=== PATIENT | male | born 1950 | race African-American/Black ===

== ENCOUNTER 2019-07-04 10:15 | Inpatient (IN) | payer MEDICAID ==
[~2019-07-04] VITALS: Ht 172.7 cm; Wt 55.8 kg
[2019-07-04] MEDS ORDERED: METHYLPREDNISOLONE SOD SUCC 125 MG/2 ML VIAL IV STA (10:35)
[2019-07-04] MEDS ORDERED: IPRATROPIUM BROMIDE (0.02%) 0.5MG/2.5ML NEB HHN STA (10:35)
[2019-07-04] MEDS ORDERED: ALBUTEROL (0.083%) 2.5MG/3ML NEB HHN STA (10:35)
[2019-07-04] MEDS ORDERED: MAGNESIUM 2 G PREMIX 50 ML IV ONE (10:45)
[2019-07-04] MEDS ORDERED: VANCOMYCIN 1 G PREMIX 200 ML IV ONE (10:45)
[2019-07-04] MEDS ORDERED: PIPERACILLIN/TAZ 3.375G PREMIX 50 ML IV ONE (10:45)
[2019-07-04] MEDS ORDERED: SODIUM CHLORIDE 0.9% 1000ML BAG (SEPSIS BOLUS) IV ONE (10:45)
[2019-07-04 11:01] LABS: BG BASE EXCESS 20.6 mmol/L (-2.0-2.0); BG CARBOXYHEMOGLOBIN 3.6 % (0.5-1.5); BG DEOXYHEMOGLOBIN 0.4 % (0.0-5.0); BG FRACTION INSPIRED OXYGEN 100; BG HCO3 ACT 56.4 mmol/L (22.0-26.0); BG METHEMOGLOBIN 0.2 % (0.0-1.5); BG OXYGEN SATURATION 99.6 % (92.0-98.5); BG OXYHEMOGLOBIN 95.8 % (94.0-97.0); BG PCO2 154.1 mmHg (35.0-45.0); BG PH 7.181 (7.350-7.450); BG PO2 221.4 mmHg (75.0-100.0); BG SAMPLE SITE RIGHT RADIAL; BG TOTAL HEMOGLOBIN 13.9 g/dL (12.0-18.0); BG VENT MODE MASK - NRB
[2019-07-04 11:32] LABS: BASOPHILS % 0.3 % (0.0-2.0); EOSINOPHILS % 3.2 % (0.0-5.0); HEMATOCRIT. 44.3 % (42.0-52.0); HEMOGLOBIN. 13.2 g/dL (14.0-18.0); INR 1.1; LYMPHOCYTES % 10.3 % (20.0-50.0); MEAN CORPUSCULAR HEMOGLOBIN 32.4 pg (28.0-32.0); MEAN CORPUSCULAR VOLUME 108.4 fL (80.0-94.0); MEAN PLATELET VOLUME 11.2 fl (7.4-10.4); MONOCYTES % 9.8 % (2.0-8.0); NEUTROPHILS % 76.4 % (40.0-76.0); PLATELET 58 x1000/uL (130-400); PROTHROMBIN TIME 11.7 sec (9.6-11.0); RED BLOOD CELL COUNT 4.08 mill/uL (4.7-6.1); RED CELL DISTRIBUTION WIDTH 19.8 % (11.6-14.6)
[2019-07-04 11:32] LABS: CHLORIDE 99 mEq/L (98-107)
[2019-07-04 11:55] LABS: PLATELET ESTIMATE DECREASED
[2019-07-04] MEDS ORDERED: MORPHINE SULFATE 2 MG/ML CPJ (NOT FOR IM USE) IV ONE (14:30)
[2019-07-04] MEDS ORDERED: SODIUM CHLORIDE 0.9% 1,000 ML IV ONE (14:30)
[2019-07-04] MEDS ORDERED: IPRATROPIUM/ALBUTEROL 0.5-3(2.5)MG/3ML NEB HHN PRN (14:45)
[2019-07-04] MEDS ORDERED: DIPHENHYDRAMINE 50MG/ML VIAL IV PRN (15:00)
[2019-07-04] MEDS ORDERED: MAGNESIUM/ALUMINUM HYDROXIDE/SIMETHICONE 30ML UDC PO PRN (15:00)
[2019-07-04] MEDS ORDERED: ENOXAPARIN 40MG/0.4ML SYR SUBCUT SCH (15:00)
[2019-07-04] MEDS ORDERED: CLONIDINE 0.1MG TABLET PO PRN (15:00)
[2019-07-04] MEDS ORDERED: LORAZEPAM 2MG/ML CPJ IV PRN (15:00)
[2019-07-04] MEDS ORDERED: DOCUSATE SODIUM 100MG CAPSULE PO PRN (15:00)
[2019-07-04] MEDS ORDERED: GUAIFENESIN 200MG/10ML SUGAR FREE UDC PO PRN (15:00)
[2019-07-04] MEDS ORDERED: NA PHOS,M-B/NA PHOS,DI-BA ENEMA 118ML PR PRN (15:00)
[2019-07-04] MEDS ORDERED: IPRATROPIUM/ALBUTEROL 0.5-3(2.5)MG/3ML NEB NEB PRN (15:00)
[2019-07-04] MEDS ORDERED: METHYLPREDNISOLONE SOD SUCC 125 MG/2 ML VIAL IV SCH (15:00)
[2019-07-04] MEDS ORDERED: ONDANSETRON HCL 4MG/2ML INJ IV PRN (15:00)
[2019-07-04] MEDS ORDERED: ACETAMINOPHEN 325MG TABLET PO PRN (15:00)
[2019-07-04] MEDS ORDERED: LEVOFLOXACIN 500MG PREMIX 100 ML IV SCH (15:00)
[2019-07-04 16:08] LABS: BG BASE EXCESS 6.5 mmol/L (-2.0-2.0); BG BILEVEL POS AIRWAY PRESSURE 16/5; BG CARBOXYHEMOGLOBIN 3.4 % (0.5-1.5); BG FRACTION INSPIRED OXYGEN 35; BG HCO3 ACT 35.3 mmol/L (22.0-26.0); BG METHEMOGLOBIN 0.3 % (0.0-1.5); BG OXYGEN SATURATION 89.6 % (92.0-98.5); BG OXYHEMOGLOBIN 86.3 % (94.0-97.0); BG PCO2 73.8 mmHg (35.0-45.0); BG PH 7.298 (7.350-7.450); BG PO2 59.8 mmHg (75.0-100.0); BG SAMPLE SITE RIGHT BRACHIAL; BG TOTAL HEMOGLOBIN 12.7 g/dL (12.0-18.0); BG VENT MODE MASK - BIPAP
[2019-07-04 16:27] LABS: CHLORIDE 103 mEq/L (98-107)
[2019-07-04] MEDS ORDERED: HYDROCODONE/ACETAMINOPHEN 5/325MG TABLET PO PRN (19:10)
[2019-07-04] MEDS ORDERED: MORPHINE SULFATE 2 MG/ML CPJ (NOT FOR IM USE) IV PRN (19:10)
[2019-07-04 21:00] VITALS: BP 121/67
[2019-07-04 22:00] VITALS: BP 121/67
[2019-07-04] MEDS ORDERED: VANCOMYCIN 1 G PREMIX 200 ML IV NR (23:00)
[2019-07-04] MEDS: METHYLPREDNISOLONE SOD SUCC 125 MG/2 ML VIAL IV SCH (23:47)
[2019-07-05] VITALS (12 sets, daily range): BP systolic 103–146; BP diastolic 48–74
[2019-07-05] MEDS: PIPERACILLIN/TAZOBACTAM 3.375 G in DEXT 5% WATER 100 ML IV SCH ×4 (00:06→21:38)
[2019-07-05] MEDS: IPRATROPIUM/ALBUTEROL 0.5-3(2.5)MG/3ML NEB HHN SCH ×6 (01:05→21:11)
[2019-07-05] MEDS: METHYLPREDNISOLONE SOD SUCC 125 MG/2 ML VIAL IV SCH ×4 (04:13→21:38)
[2019-07-05] MEDS: VANCOMYCIN 750 MG PREMIX 150 ML IV SCH ×3 (06:48→21:39)
[2019-07-05 07:43] LABS: CHLORIDE 103 mEq/L (98-107)
[2019-07-05 07:50] LABS: HEMATOCRIT. 36.5 % (42.0-52.0); HEMOGLOBIN. 11.4 g/dL (14.0-18.0); MEAN CORPUSCULAR HEMOGLOBIN 31.9 pg (28.0-32.0); MEAN CORPUSCULAR VOLUME 102.1 fL (80.0-94.0); MEAN PLATELET VOLUME 11.6 fl (7.4-10.4); PLATELET 101 x1000/uL (130-400); RED BLOOD CELL COUNT 3.57 mill/uL (4.7-6.1); RED CELL DISTRIBUTION WIDTH 18.7 % (11.6-14.6)
[2019-07-05 07:58] LABS: T4 FREE 1.34 ng/dL (0.76-1.46)
[2019-07-05 08:00] LABS: LDL CHOLESTEROL 53 mg/dL (5-100)
[2019-07-05 08:01] LABS: HDL CHOLESTEROL 57 mg/dL (40-59)
[2019-07-05] MEDS: ASPIRIN 81MG EC TABLET PO SCH (09:58)
[2019-07-05 11:38] LABS: BG BASE EXCESS 13.7 mmol/L (-2.0-2.0); BG CARBOXYHEMOGLOBIN 2.4 % (0.5-1.5); BG DEOXYHEMOGLOBIN 3.2 % (0.0-5.0); BG FRACTION INSPIRED OXYGEN 32; BG HCO3 ACT 43.4 mmol/L (22.0-26.0); BG METHEMOGLOBIN 0.3 % (0.0-1.5); BG OXYGEN SATURATION 96.7 % (92.0-98.5); BG OXYHEMOGLOBIN 94.1 % (94.0-97.0); BG PH 7.316 (7.350-7.450); BG PO2 93.9 mmHg (75.0-100.0); BG SAMPLE SITE RIGHT BRACHIAL; BG TOTAL HEMOGLOBIN 12.1 g/dL (12.0-18.0); BG VENT MODE NASAL CANNULA
[2019-07-05 17:42] LABS: PLATELET ESTIMATE DECREASED
[2019-07-06] VITALS (12 sets, daily range): BP systolic 113–151; BP diastolic 57–107
[2019-07-06] MEDS: IPRATROPIUM/ALBUTEROL 0.5-3(2.5)MG/3ML NEB HHN SCH ×6 (00:28→21:18)
[2019-07-06] MEDS: PIPERACILLIN/TAZOBACTAM 3.375 G in DEXT 5% WATER 100 ML IV SCH ×6 (00:45→23:27)
[2019-07-06] MEDS: METHYLPREDNISOLONE SOD SUCC 125 MG/2 ML VIAL IV SCH ×2 (03:32→08:50)
[2019-07-06] MEDS: VANCOMYCIN 750 MG PREMIX 150 ML IV SCH (06:20)
[2019-07-06 07:53] LABS: HEMATOCRIT. 35.9 % (42.0-52.0); HEMOGLOBIN. 11.5 g/dL (14.0-18.0); MEAN CORPUSCULAR HEMOGLOBIN 32.2 pg (28.0-32.0); MEAN PLATELET VOLUME 11.5 fl (7.4-10.4); PLATELET 114 x1000/uL (130-400); RED BLOOD CELL COUNT 3.59 mill/uL (4.7-6.1); RED CELL DISTRIBUTION WIDTH 18.5 % (11.6-14.6)
[2019-07-06 08:38] LABS: BG BASE EXCESS 12.7 mmol/L (-2.0-2.0); BG BILEVEL POS AIRWAY PRESSURE 18/5; BG CARBOXYHEMOGLOBIN 1.4 % (0.5-1.5); BG DEOXYHEMOGLOBIN 2.8 % (0.0-5.0); BG FRACTION INSPIRED OXYGEN 40; BG HCO3 ACT 37.5 mmol/L (22.0-26.0); BG METHEMOGLOBIN 0.1 % (0.0-1.5); BG OXYGEN SATURATION 97.2 % (92.0-98.5); BG OXYHEMOGLOBIN 95.7 % (94.0-97.0); BG PCO2 48.7 mmHg (35.0-45.0); BG PH 7.504 (7.350-7.450); BG PO2 89.9 mmHg (75.0-100.0); BG SAMPLE SITE RIGHT BRACHIAL; BG TOTAL HEMOGLOBIN 12.4 g/dL (12.0-18.0); BG VENT MODE MASK - BIPAP; BG VENT RATE 20 set
[2019-07-06] MEDS: ASPIRIN 81MG EC TABLET PO SCH (08:50)
[2019-07-06 08:51] LABS: CHLORIDE 102 mEq/L (98-107)
[2019-07-06 09:10] LABS: VANCOMYCIN TROUGH 21.2 ug/mL (5.0-10.0)
[2019-07-06 14:21] LABS: PLATELET ESTIMATE SLIGHTLY DECREASED
[2019-07-06] MEDS: METHYLPREDNISOLONE SOD SUCC 40 MG/ML VIAL IV SCH ×2 (15:21→23:21)
[2019-07-06 16:29] LABS: CLARITY URINE TURBID (CLEAR); COLOR URINE YELLOW (YELLOW); KETONES URINE NEGATIVE (NEGATIVE); LEUKOCYTE ESTERASE URINE NEGATIVE (NEGATIVE); NITRITE URINE NEGATIVE (NEGATIVE); OCCULT BLOOD URINE NEGATIVE (NEGATIVE); PH URINE 7.5 (4.5-8.0); PROTEIN URINE NEGATIVE (NEGATIVE); SPECIFIC GRAVITY URINE 1.018 (1.005-1.030)
[2019-07-06] MEDS: VANCOMYCIN 1 G PREMIX 200 ML IV SCH (20:42)
[2019-07-07] VITALS (15 sets, daily range): BP systolic 107–142; BP diastolic 49–90
[2019-07-07] MEDS: IPRATROPIUM/ALBUTEROL 0.5-3(2.5)MG/3ML NEB HHN SCH ×6 (01:19→21:05)
[2019-07-07] MEDS: METHYLPREDNISOLONE SOD SUCC 40 MG/ML VIAL IV SCH ×3 (05:53→20:01)
[2019-07-07] MEDS: PIPERACILLIN/TAZOBACTAM 3.375 G in DEXT 5% WATER 100 ML IV SCH ×3 (05:53→18:37)
[2019-07-07] MEDS: ASPIRIN 81MG EC TABLET PO SCH (07:47)
[2019-07-07] MEDS: VANCOMYCIN 1 G PREMIX 200 ML IV SCH ×2 (07:48→19:59)
[2019-07-07 11:41] LABS: HEMATOCRIT. 37.9 % (42.0-52.0); HEMOGLOBIN. 12.2 g/dL (14.0-18.0); MEAN CORPUSCULAR HEMOGLOBIN 32.1 pg (28.0-32.0); MEAN CORPUSCULAR VOLUME 99.9 fL (80.0-94.0); MEAN PLATELET VOLUME 10.4 fl (7.4-10.4); PLATELET 104 x1000/uL (130-400); RED CELL DISTRIBUTION WIDTH 18.1 % (11.6-14.6)
[2019-07-07 11:56] LABS: CHLORIDE 98 mEq/L (98-107)
[2019-07-07 12:40] LABS: PLATELET ESTIMATE DECREASED
[2019-07-07] MEDS ORDERED: POTASSIUM CHLORIDE 20MEQ TABLET SR PO NR (16:15)
[2019-07-07] MEDS: METOPROLOL TARTRATE 25MG TABLET PO SCH (20:00)
[2019-07-08] VITALS: BP 142/85
[2019-07-08] MEDS: IPRATROPIUM/ALBUTEROL 0.5-3(2.5)MG/3ML NEB HHN SCH ×6 (01:19→20:09)
[2019-07-08 04:00] VITALS: BP 120/72
[2019-07-08] MEDS: PIPERACILLIN/TAZOBACTAM 3.375 G in DEXT 5% WATER 100 ML IV SCH ×6 (05:47→23:01)
[2019-07-08] MEDS: METHYLPREDNISOLONE SOD SUCC 40 MG/ML VIAL IV SCH (05:47)
[2019-07-08 07:49] LABS: HEMATOCRIT. 42.6 % (42.0-52.0); HEMOGLOBIN. 13.6 g/dL (14.0-18.0); MEAN CORPUSCULAR HEMOGLOBIN 32.1 pg (28.0-32.0); MEAN CORPUSCULAR VOLUME 100.5 fL (80.0-94.0); MEAN PLATELET VOLUME 10.6 fl (7.4-10.4); PLATELET 97 x1000/uL (130-400); RED BLOOD CELL COUNT 4.24 mill/uL (4.7-6.1); RED CELL DISTRIBUTION WIDTH 18.3 % (11.6-14.6)
[2019-07-08 08:00] VITALS: BP 145/85
[2019-07-08 08:12] LABS: CHLORIDE 96 mEq/L (98-107)
[2019-07-08] MEDS: ASPIRIN 81MG EC TABLET PO SCH (09:38)
[2019-07-08] MEDS: VANCOMYCIN 1 G PREMIX 200 ML IV SCH ×2 (09:38→21:13)
[2019-07-08] MEDS: METOPROLOL TARTRATE 25MG TABLET PO SCH ×2 (09:39→21:12)
[2019-07-08 12:00] VITALS: BP 132/78
[2019-07-08 12:28] LABS: BG BASE EXCESS 10.3 mmol/L (-2.0-2.0); BG CARBOXYHEMOGLOBIN 1.8 % (0.5-1.5); BG DEOXYHEMOGLOBIN 28.6 % (0.0-5.0); BG FRACTION INSPIRED OXYGEN 21; BG HCO3 ACT 38.5 mmol/L (22.0-26.0); BG METHEMOGLOBIN 0.3 % (0.0-1.5); BG OXYGEN SATURATION 70.8 % (92.0-98.5); BG OXYHEMOGLOBIN 69.3 % (94.0-97.0); BG PH 7.365 (7.350-7.450); BG SAMPLE SITE RIGHT BRACHIAL; BG TOTAL HEMOGLOBIN 13.8 g/dL (12.0-18.0); BG VENT MODE ROOM AIR
[2019-07-08] MEDS: THEOPHYLLINE ANHYDROUS 80 MG/15 ML 120ML PO SCH ×2 (13:12→21:13)
[2019-07-08 13:17] LABS: PLATELET ESTIMATE DECREASED
[2019-07-08 16:00] VITALS: BP 106/45
[2019-07-08] MEDS: PREDNISONE 20MG TABLET PO SCH (17:21)
[2019-07-09] VITALS: BP 134/74
[2019-07-09] MEDS: IPRATROPIUM/ALBUTEROL 0.5-3(2.5)MG/3ML NEB HHN SCH ×6 (00:18→21:44)
[2019-07-09 04:00] VITALS: BP 121/76
[2019-07-09] MEDS: THEOPHYLLINE ANHYDROUS 80 MG/15 ML 120ML PO SCH ×3 (05:24→21:01)
[2019-07-09] MEDS: PIPERACILLIN/TAZOBACTAM 3.375 G in DEXT 5% WATER 100 ML IV SCH ×3 (05:24→19:33)
[2019-07-09] MEDS: PREDNISONE 20MG TABLET PO SCH ×2 (08:59→19:33)
[2019-07-09] MEDS: VANCOMYCIN 1 G PREMIX 200 ML IV SCH ×2 (08:59→21:04)
[2019-07-09] MEDS: ASPIRIN 81MG EC TABLET PO SCH (08:59)
[2019-07-09] MEDS: METOPROLOL TARTRATE 25MG TABLET PO SCH ×2 (09:00→21:00)
[2019-07-09 20:00] VITALS: BP 92/59
[2019-07-10] VITALS: BP 109/61
[2019-07-10] MEDS: PIPERACILLIN/TAZOBACTAM 3.375 G in DEXT 5% WATER 100 ML IV SCH ×4 (00:43→20:42)
[2019-07-10] MEDS: IPRATROPIUM/ALBUTEROL 0.5-3(2.5)MG/3ML NEB HHN SCH ×3 (01:54→07:56)
[2019-07-10 04:00] VITALS: BP 127/74
[2019-07-10] MEDS: THEOPHYLLINE ANHYDROUS 80 MG/15 ML 120ML PO SCH ×3 (05:22→21:06)
[2019-07-10] MEDS ORDERED: DILTIAZEM HCL 5MG/ML 10ML VIAL IV ONE (07:15)
[2019-07-10 08:00] VITALS: BP 119/76
[2019-07-10] MEDS: ASPIRIN 81MG EC TABLET PO SCH (08:26)
[2019-07-10] MEDS: METOPROLOL TARTRATE 25MG TABLET PO SCH (08:26)
[2019-07-10] MEDS: PREDNISONE 20MG TABLET PO SCH ×2 (08:26→19:46)
[2019-07-10] MEDS: VANCOMYCIN 1 G PREMIX 200 ML IV SCH ×2 (08:30→20:47)
[2019-07-10] MEDS ORDERED: IPRATROPIUM/ALBUTEROL 0.5-3(2.5)MG/3ML NEB HHN PRN (11:45)
[2019-07-10 12:00] VITALS: BP 106/63
[2019-07-10] MEDS: DILTIAZEM HCL 60MG TABLET PO SCH ×3 (13:00→21:06)
[2019-07-10 16:00] VITALS: BP 117/70
[2019-07-10 20:00] VITALS: BP 105/67
[2019-07-11] VITALS: BP 102/64
[2019-07-11] MEDS: PIPERACILLIN/TAZOBACTAM 3.375 G in DEXT 5% WATER 100 ML IV SCH ×4 (00:48→17:17)
[2019-07-11 04:00] VITALS: BP 101/66
[2019-07-11] MEDS: DILTIAZEM HCL 60MG TABLET PO SCH ×3 (05:51→22:00)
[2019-07-11] MEDS: THEOPHYLLINE ANHYDROUS 80 MG/15 ML 120ML PO SCH ×3 (06:04→22:45)
[2019-07-11 07:06] LABS: HEMATOCRIT. 43.2 % (42.0-52.0); HEMOGLOBIN. 14.2 g/dL (14.0-18.0); MEAN CORPUSCULAR HEMOGLOBIN 32.3 pg (28.0-32.0); MEAN PLATELET VOLUME 11.4 fl (7.4-10.4); PLATELET 113 x1000/uL (130-400); RED BLOOD CELL COUNT 4.41 mill/uL (4.7-6.1); RED CELL DISTRIBUTION WIDTH 17.9 % (11.6-14.6)
[2019-07-11 07:14] LABS: CHLORIDE 95 mEq/L (98-107)
[2019-07-11 07:23] LABS: THEOPHYLLINE 4.8 ug/mL (10-20)
[2019-07-11 08:00] VITALS: BP 120/79
[2019-07-11] MEDS: VANCOMYCIN 1 G PREMIX 200 ML IV SCH (08:08)
[2019-07-11] MEDS: ASPIRIN 81MG EC TABLET PO SCH (08:08)
[2019-07-11] MEDS: PREDNISONE 20MG TABLET PO SCH ×2 (08:08→18:51)
[2019-07-11 08:54] LABS: PLATELET ESTIMATE DECREASED
[2019-07-11 09:37] VITALS: BP_SYST 115; BP_SYST 120; BP_DIAS 79; BP_DIAS 86
[2019-07-11 12:00] VITALS: BP 112/80
[2019-07-11] MEDS ORDERED: POTASSIUM CHLORIDE 20MEQ/PACKET PO NR (15:45)
[2019-07-11] MEDS ORDERED: KCL 10MEQ/50ML PREMIX 50 ML IV NR (16:30)
[2019-07-11] MEDS: IPRATROPIUM BROMIDE (0.02%) 0.5MG/2.5ML NEB HHN SCH ×2 (19:52→23:48)
[2019-07-11 20:00] VITALS: BP 103/68
[2019-07-12] VITALS: BP 119/74
== END 2019-07-12 03:30 | DRG 720 ==
LOC: ER 10:15 → EDBEDREQ 12:16 → ENRESERV 19:23 → 3WST 20:28 → 7WST 07-07 23:57
PROVIDERS: ADMIT Internal Medicine; ATTEND Internal Medicine
PROC: 5A09357 Assistance with Respiratory Ventilation, Less than 24 Consecutive Hours, Continuous Positive Airway Pressure (ICD-10-PCS; principal; 2019-07-04)
PROC: 5A09357 Assistance with Respiratory Ventilation, Less than 24 Consecutive Hours, Continuous Positive Airway Pressure (ICD-10-PCS; 2019-07-05)
PROC: 5A09357 Assistance with Respiratory Ventilation, Less than 24 Consecutive Hours, Continuous Positive Airway Pressure (ICD-10-PCS; 2019-07-06)
DX: A41.9 Sepsis, unspecified organism (principal); J96.01 Acute respiratory failure with hypoxia; G93.40 Encephalopathy, unspecified; E44.0 Moderate protein-calorie malnutrition; J96.02 Acute respiratory failure with hypercapnia; J18.9 Pneumonia, unspecified organism; D69.6 Thrombocytopenia, unspecified; I11.0 Hypertensive heart disease with heart failure; I27.20 Pulmonary hypertension, unspecified; I50.9 Heart failure, unspecified; J44.1 Chronic obstructive pulmonary disease with (acute) exacerbation; D64.9 Anemia, unspecified; E87.6 Hypokalemia; I48.92 Unspecified atrial flutter; I48.0 Paroxysmal atrial fibrillation; J44.0 Chronic obstructive pulmonary disease with (acute) lower respiratory infection; I49.9 Cardiac arrhythmia, unspecified; Z86.73 Personal history of transient ischemic attack (TIA), and cerebral infarction without residual deficits; Z99.81 Dependence on supplemental oxygen; Z87.440 Personal history of urinary (tract) infections; Z68.1 Body mass index [BMI] 19.9 or less, adult
CPT/HCPCS: 36415; 36600; 71045; 80048; 80053; 80061; 80198; 80202; 81003; 82375; 82805; 82962; 83605; 83735; 83880; 84132; 84145; 84439; 84443; 84484; 85025; 87804; 93005; 93306; 94640; 94644; 94660; 96365; 96366; 96368; 96375; 97162; 97530; 99291; J2270; J2543; J2920; J2930; J3370; J3475; J3480; J3490; J7030; J7060; J7512; J7611; J7620